=== PATIENT | female | born 1970 | race Hispanic/Latino ===

== ENCOUNTER 2018-10-25 11:00 | Outpatient (CLI) | payer BC | END 2018-10-25 11:01 | disposition home or self-care (01) | LOC: SLR 11:00 | PROVIDERS: ATTEND Otolaryngology | DX: G47.33 Obstructive sleep apnea (adult) (pediatric) (principal); R40.0 Somnolence; R06.83 Snoring | CPT/HCPCS: G0399 ==

== ENCOUNTER → 2018-11-05 | Outpatient (CLI) | payer BC | END | disposition home or self-care (01) | LOC: SLR 11:00 | PROVIDERS: ATTEND Otolaryngology | DX: G47.33 Obstructive sleep apnea (adult) (pediatric) (principal); R40.0 Somnolence; R06.83 Snoring; E66.9 Obesity, unspecified | CPT/HCPCS: 95811 ==

== ENCOUNTER 2019-08-15 16:26 | Emergency (ER) | payer BC ==
--- NOTE | 2019-08-15 17:10 | Emergency Department Report ---
ED Chest Pain HPI - General Chief Complaint: Chest Pain Stated Complaint: CHEST PAIN Time Seen by Provider: 08/15/19 17:05 Source: patient Mode of arrival: Ambulatory Limitations: No Limitations - History of Present Illness Initial Comments: 49 YO AA FEMALE COMES TO ER WITH CHEST ACHING SINCE THURSDAY. SHE STATES ITS WORSE WITH MOVEMENT. HX HTN DEPRESSION MOM AND DAD A/W HX OCC ETOH NO CIG OR DRUGS NO SOB NO FEVER NO CHILLS LABS NOTED ORDERED IN TRIAGE MD Complaint: chest pain -: Gradual, days(s) Severity: mild Quality: aching Consistency: intermittent Improves With: leaning foward, remaining still Worsens With: inspiration, movement re: denies: nausea, vomting, diaphoresis, dyspnea, sense of impending doom Other Symptoms: denies: cough, fever, syncope, rash, acid taste in mouth, leg swelling, palpitations, burping Treatments Prior to Arrival: none Aspirin use within the Past 7 Days: (0) No - Related Data Previous Rx's Medication Instructions Recorded Last Taken Type Azithromycin [Zithromax Z-DEREK] 250 mg PO DAILY #6 tablet 08/15/19 Unknown Rx Allergies Allergy/AdvReac Type Severity Reaction Status Date / Time No Known Allergies Allergy Unverified 08/15/19 16:40 Heart Score - HEART Score History: Slightly suspicious EKG: Normal Age: < 45 Risk factors: 1-2 risk factors Troponin: < normal limit HEART Score: 1 ED Review of Systems ROS: Stated complaint: CHEST PAIN Other details as noted in HPI Comment: All other systems reviewed and negative ED Past Medical Hx - Past Medical History Previous Medical History?: Yes Hx Hypertension: Yes Additional medical history: DEPRESSION - Surgical History Past Surgical History?: Yes Hx Appendectomy: Yes Additional Surgical History: Thyroid nodule removed - Family History Family history: no significant - Social History Smoking Status: Never Smoker Substance Use Type: None - Medications Home Medications: Home Medications Medication Instructions Recorded Confirmed Last Taken Type Azithromycin [Zithromax Z-DEREK] 250 mg PO DAILY #6 tablet 08/15/19 Unknown Rx ED Physical Exam - General Limitations: No Limitations General appearance: alert, in no apparent distress - Head Head exam: Present: atraumatic, normocephalic - Eye Eye exam: Present: normal appearance - ENT ENT exam: Present: mucous membranes moist - Neck Neck exam: Present: normal inspection - Respiratory Respiratory exam: Present: normal lung sounds bilaterally. Absent: respiratory distress - Cardiovascular Cardiovascular Exam: Present: regular rate, normal rhythm. Absent: systolic murmur, diastolic murmur, rubs, gallop - GI/Abdominal GI/Abdominal exam: Present: soft, normal bowel sounds - Extremities Exam Extremities exam: Present: normal inspection - Back Exam Back exam: Present: normal inspection - Neurological Exam Neurological exam: Present: alert, oriented X3 - Psychiatric Psychiatric exam: Present: normal affect, normal mood - Skin Skin exam: Present: warm, dry, intact, normal color. Absent: rash ED Course Vital Signs 08/15/19 08/15/19 16:41 19:00 Temperature 98.1 F Pulse Rate 106 H 89 Respiratory 18 16 Rate Blood Pressure 122/63 120/70 [Right] O2 Sat by Pulse 98 98 Oximetry DYLAN score - Dylan Score Age > 65: (0) No Aspirin use within the Past 7 Days: (0) No 3 or more CAD Risk Factors: (0) No 2 or more Angina events in past 24 hrs: (0) No Known CAD with more than 50% Stenosis: (0) No Elevated Cardiac Markers: (0) No ST Deviation Greater than 0.5mm: (0) No DYLAN Score: 0 ED Medical Decision Making - Lab Data Result diagrams: 08/15/19 17:19 08/15/19 17:19 - EKG Data Rate: normal - EKG Data When compared to previous EKG there are: no significant change - Radiology Data Radiology results: report reviewed, image reviewed - Medical Decision Making Laboratory Results - last 24 hr 08/15/19 08/15/19 08/15/19 17:19 17:19 17:25 WBC 14.2 H RBC 4.19 Hgb 13.6 Hct 39.6 MCV 94 MCH 32 MCHC 34 RDW 14.2 Plt Count 440 Lymph % (Auto) 13.0 L [place] % (Auto) 9.2 H Eos % (Auto) 0.7 Baso % (Auto) 0.8 Lymph # 1.8 [place] # 1.3 H Eos # 0.1 Baso # 0.1 Seg Neutrophils % 76.3 H Seg Neutrophils # 10.8 H D-Dimer 226.65 Sodium 133 L Potassium 3.7 Chloride 95.3 L Carbon Dioxide 22 Anion Gap 19 BUN 22 H Creatinine 1.1 Estimated GFR 53 BUN/Creatinine Ratio 20 Glucose 91 Calcium 9.0 Total Bilirubin 0.20 AST 19 ALT 23 Alkaline Phosphatase 92 Troponin T < 0.010 Total Protein 7.3 Albumin 3.7 L Albumin/Globulin Ratio 1.0 Vital Signs 08/15/19 16:41 Temperature 98.1 F Pulse Rate 106 H Respiratory 18 Rate Blood Pressure 122/63 [Right] O2 Sat by Pulse 98 Oximetry LABS NOTED DDIMER NEG 12 LEAD NOTED- NAP CHEST XRAY NOTED GIVEN INC IN WBC AND PLEURITIC CP PT TX WITH AZITHRO AMBULATORY NONTOXIC TAKING PO DC HOME WITH PCP FOLLOW UP - Differential Diagnosis RO ACS/GERD/URTI/PE Critical care attestation.: If time is entered above; I have spent that time in minutes in the direct care of this critically ill patient, excluding procedure time. ED Disposition Clinical Impression: URTI (acute upper respiratory infection), Non-cardiac chest pain Disposition: DC- TO HOME OR SELFCARE Is pt being admited?: No Does the pt Need Aspirin: No Condition: Stable Instructions: Upper Respiratory Infection (ED), Chest Pain (ED) Additional Instructions: MED ORDERED TODAY FOLLOW UP IN 24 HOURS WITH PCP FOR RECHECK TYLENOL OR MOTRIN FOR PAIN DIET TOLERATED HYDRATE WELL WITH WATER SOCIAL DISTANCING Prescriptions: Azithromycin [Zithromax Z-DEREK] 250 mg PO DAILY #6 tablet Referrals: MONA IBARRA MD [Primary Care Provider] - 3-5 Days CLARK SALAZAR MD [Staff Physician] - 3-5 Days Time of Disposition: 18:46
--- NOTE | 2019-08-15 17:26 | XRay Report ---
CHEST PA AND LATERAL VIEWS INDICATION: CHEST PAIN. COMPARISON: None FINDINGS: Support devices: None Heart: Normal Lungs/Pleura: No acute pulmonary or pleural findings. IMPRESSION: 1. No significant abnormality. Signer Name: Cosme De La Cruz MD Signed: 08/15/2019 5:22 PM Workstation Name: [id number]
[2019-08-15 17:32] LABS: Basophils # (Auto) 0.1 K/mm3 (0.0-0.1); Basophils % (Auto) 0.8 % (0.0-1.8); Eosinophils # (Auto) 0.1 K/mm3 (0.0-0.4); Eosinophils % (Auto) 0.7 % (0.0-4.3); Hematocrit 39.6 % (30.3-42.9); Hemoglobin 13.6 gm/dl (10.1-14.3); Lymphocytes # (Auto) 1.8 K/mm3 (1.2-5.4); Mean Corpuscular HGB Conc 34 % (30-34); Mean Corpuscular Volume 94 fl (79-97); Monocytes # (Auto) 1.3 K/mm3 (0.0-0.8); Monocytes % (Auto) 9.2 % (0.0-7.3); Platelet Count 440 K/mm3 (140-440); Red Blood Count 4.19 M/mm3 (3.65-5.03); Red Cell Distribution Width 14.2 % (13.2-15.2)
[2019-08-15 17:57] LABS: Alanine Aminotransferase 23 units/L (7-56); Albumin 3.7 g/dL (3.9-5); BUN/Creatinine Ratio 20; Blood Urea Nitrogen 22 mg/dL (7-17); Hemolysis Index 20
[2019-08-15 19:01] VITALS: BP 120/70
== END 2019-08-15 19:00 | disposition home or self-care (01) ==
LOC: ED 16:26
DX: J06.9 Acute upper respiratory infection, unspecified (principal); R07.89 Other chest pain; I10 Essential (primary) hypertension; F32.9 Major depressive disorder, single episode, unspecified; Z90.49 Acquired absence of other specified parts of digestive tract; Z79.899 Other long term (current) drug therapy; Z98.890 Other specified postprocedural states
CPT/HCPCS: 36415; 71046; 80053; 84484; 85025; 85379; 93005

== ENCOUNTER → 2020-10-09 | Outpatient (CLI) | payer BC | END | disposition home or self-care (01) | LOC: SLR 11:00 | PROVIDERS: ATTEND Otolaryngology | DX: G47.33 Obstructive sleep apnea (adult) (pediatric) (principal) | CPT/HCPCS: 95811 ==